=== PATIENT | male | born 1995 | race African-American/Black ===

== ENCOUNTER 2017-10-10 17:05 | Emergency (ER) | payer OTHER ==
[~2017-10-10] VITALS: Ht 172.7 cm; Wt 86.4 kg
[~2017-10-10 17:05] MED LIST: FLOXIN OTIC DROP5 ML OT; NKDA; PEPCID40 MG PO; PREDNISONE10 MG PO
[2017-10-10 17:09] VITALS: BP 142/74; TEMP 97.8
[2017-10-10 18:47] VITALS: PULSE 83
== END 2017-10-10 18:48 | disposition home or self-care (01) ==
LOC: COL.ER 17:05
DX: H65.93 Unspecified nonsuppurative otitis media, bilateral (principal)